=== PATIENT | female | born 1990 | race Caucasian/White ===

== ENCOUNTER 2016-12-25 09:30 | Emergency (ER) | payer MEDICAID ==
[~2016-12-25] VITALS: Ht 167.6 cm; Wt 68.5 kg
[2016-12-25 09:34] VITALS: BP 111/69; PULSE 92; RESP 16; TEMP 97.5; O2SAT 99
--- NOTE | 2016-12-25 09:46 | NUR ---
Patient to ER bed 4 to gown for evaluation. Side rails up. Report given to Abby RAMOS.
--- NOTE | 2016-12-25 09:47 | NUR ---
Stable condition. States has had cough for one week with occassional blood in sputum, believes is from coughing too hard. States received azithromycin last week and finished but symptoms persists. Also states that she has 1x bloody nose this AM that quickly stopped. Patient is 31 weeks . No other complaints/injuries per patient or noted.
--- NOTE | 2016-12-25 09:50 | NUR ---
Dr. Evans at bedside
--- NOTE | 2016-12-25 10:09 | NUR ---
Dr. Evans aware of heart rate
[2016-12-25 10:22] VITALS: BP 128/76; PULSE 88; RESP 20; TEMP 98.2; O2SAT 100
--- NOTE | 2016-12-25 10:22 | NUR ---
Patient given written and verbal discharge instructions and verbalizes understanding. ER MD discussed with patient the results and treatment provided. Patient in stable condition. ID arm band removed. Rx of Robitussin DM given. Patient educated on pain management and to follow up with PMD. Pain Scale 0/10. Opportunity for questions provided and answered.
== END 2016-12-25 10:22 | disposition home or self-care (01) ==
LOC: MERGE 09:30 → SED 09:30
DX: O99.513 Diseases of the respiratory system complicating pregnancy, third trimester (principal); J00 Acute nasopharyngitis [common cold]; R05 Cough; F41.9 Anxiety disorder, unspecified; Z3A.31 31 weeks gestation of pregnancy
CPT/HCPCS: 99282

== ENCOUNTER 2017-05-23 20:10 | Emergency (ER) | payer MEDICAID ==
[~2017-05-23] VITALS: Ht 167.6 cm; Wt 59.0 kg
[2017-05-23 20:25] VITALS: BP_SYST 133
[2017-05-23] MEDS ORDERED: NACL 0.9% 1,000 ML IV ONE (20:59)
[2017-05-23] MEDS ORDERED: ONDANSETRON HCL 4 MG/2 ML VIAL IVP ONE (21:00)
[2017-05-23] MEDS ORDERED: FAMOTIDINE PF 20 MG/2 ML VIAL IVP ONE (21:00)
[2017-05-23 21:29] LABS: BILIRUBIN,URINE NEGATIVE (NEGATIVE); BLOOD, URINE NEGATIVE (NEGATIVE); CLARITY/URINE CLEAR (CLEAR); COLOR,URINE YELLOW (YELLOW); GLUCOSE,URINE NEGATIVE (NEGATIVE); KETONES,URINE NEGATIVE (NEGATIVE); LEUKOCYTE ESTERASE ,URINE NEGATIVE (NEGATIVE); NITRITE, URINE NEGATIVE (NEGATIVE); PH,URINE 7.5 (5.0-8.0); PROTEIN URINE NEGATIVE (NEGATIVE); UROBILINOGEN,URINE 0.2 (0.2-1.0)
[2017-05-23 21:40] LABS: BASOPHILS % (AUTO) 0.4 % (0.0-2.0); EOSINOPHILS % (AUTO) 0.9 % (0.0-4.0); HEMATOCRIT 37.3 % (36-48); HEMOGLOBIN 12.4 g/dL (12.0-16.0); LYMPHOCYTES % (AUTO) 36.9 % (20.5-51.5); MEAN CORPUSCULAR HEMOGLOBIN 30 pg (27-31); MEAN CORPUSCULAR HGB CONC 33 % (32-36); MEAN CORPUSCULAR VOLUME 90 fL (79.0-98.0); MONOCYTES # (AUTO) 0.5 K/uL (0.0-1.0); MONOCYTES % (AUTO) 8.7 % (1.7-9.3); NEUTROPHILS # (AUTO) 2.8 K/uL (1.8-7.7); NEUTROPHILS % (AUTO) 53.1 % (40.0-70.0); PLATELET COUNT (AUTO) 219 K/uL (130-430); RED BLOOD CELL COUNT(AUTO) 4.16 MIL/uL (4.2-6.2); RED CELL DISTRIBUTION WIDTH 12.1 % (9.0-15.0); WHITE BLOOD COUNT (AUTO) 5.3 K/uL (4.8-10.8)
[2017-05-23 21:54] LABS: CALCIUM 8.3 mg/dL (8.4-11.0); CREATININE 0.74 mg/dL (0.55-1.30); POTASSIUM 4.1 mmol/L (3.5-5.1)
[2017-05-23 21:58] LABS: ALBUMIN 3.7 g/dL (3.4-4.8); TOTAL BILIRUBIN 0.3 mg/dL (0.0-1.0)
[2017-05-23 22:20] VITALS: BP_SYST 125
== END 2017-05-23 22:20 | disposition home or self-care (01) ==
LOC: SED 20:10
DX: K52.9 Noninfective gastroenteritis and colitis, unspecified (principal); F41.9 Anxiety disorder, unspecified
CPT/HCPCS: 36415; 80053; 81003; 81025; 82150; 83690; 85025; 96361; 96374; 96375; 99284; J2405; J3490; J7030

== ENCOUNTER 2017-09-23 22:48 | Emergency (ER) | payer MEDICAID ==
[~2017-09-23] VITALS: Ht 170.2 cm; Wt 63.5 kg
[2017-09-23 22:48] VITALS: BP_SYST 119
--- NOTE | 2017-09-23 23:03 | NUR ---
Placed in room 08 . Placed on correspondence transcriber, blood pressure machine and pulse oximeter. To gown for exam. Side rails up. Report given to RACHEL Banda.
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
--- NOTE | 2017-09-23 23:10 | NUR ---
ER at bedside examining patient.
[2017-09-23 23:32] LABS: CLARITY/URINE CLOUDY (CLEAR); COLOR,URINE RED (YELLOW)
[2017-09-23 23:34] LABS: BILIRUBIN,URINE NEGATIVE (NEGATIVE); BLOOD, URINE 3+ (NEGATIVE); GLUCOSE,URINE NEGATIVE (NEGATIVE); KETONES,URINE NEGATIVE (NEGATIVE); LEUKOCYTE ESTERASE ,URINE NEGATIVE (NEGATIVE); NITRITE, URINE NEGATIVE (NEGATIVE); PH,URINE 6.5 (5.0-8.0); PROTEIN URINE 2+ (NEGATIVE); UROBILINOGEN,URINE 0.2 (0.2-1.0)
[2017-09-23 23:36] LABS: BACTERIA,URINE FEW /HPF (None Seen); RBC,URINE >100 /HPF (0-3); WBC,URINE 0-3 /HPF (0-3)
--- NOTE | 2017-09-24 | NUR ---
Patient resting quietly. No acute distress noted. Vital signs within normal range.
--- NOTE | 2017-09-24 01:00 | NUR ---
Patient resting quietly. No acute distress noted. Vital signs within normal range.
[2017-09-24 01:06] LABS: BASOPHILS % (AUTO) 0.4 % (0.0-2.0); EOSINOPHILS # (AUTO) 0.1 K/uL (0.0-0.4); EOSINOPHILS % (AUTO) 1.2 % (0.0-4.0); HEMATOCRIT 35.8 % (36-48); HEMOGLOBIN 11.9 g/dL (12.0-16.0); LYMPHOCYTES # (AUTO) 2.3 K/uL (1.0-5.5); LYMPHOCYTES % (AUTO) 41.9 % (20.5-51.5); MEAN CORPUSCULAR HEMOGLOBIN 29 pg (27-31); MEAN CORPUSCULAR HGB CONC 33 % (32-36); MEAN CORPUSCULAR VOLUME 87 fL (79.0-98.0); MONOCYTES # (AUTO) 0.4 K/uL (0.0-1.0); MONOCYTES % (AUTO) 7.9 % (1.7-9.3); NEUTROPHILS # (AUTO) 2.7 K/uL (1.8-7.7); NEUTROPHILS % (AUTO) 48.6 % (40.0-70.0); PLATELET COUNT (AUTO) 231 K/uL (130-430); RED BLOOD CELL COUNT(AUTO) 4.09 MIL/uL (4.2-6.2); WHITE BLOOD COUNT (AUTO) 5.5 K/uL (4.8-10.8)
[2017-09-24 01:35] LABS: CALCIUM 9.4 mg/dL (8.4-11.0); CREATININE 0.65 mg/dL (0.55-1.30); POTASSIUM 3.7 mmol/L (3.5-5.1)
[2017-09-24 01:39] LABS: TOTAL BILIRUBIN 0.2 mg/dL (0.0-1.0)
[2017-09-24 02:09] VITALS: BP_SYST 118
--- NOTE | 2017-09-24 02:09 | NUR ---
Patient given written and verbal discharge instructions and verbalizes understanding. ER MD discussed with patient the results and treatment provided. Patient in stable condition. ID arm band removed. Rx of ibuprofen, pyridium, and norco given. Patient educated on pain management and to follow up with PMD. Pain Scale 0/10. Opportunity for questions provided and answered.
[2017-09-24 02:16] LABS: PROTHROMBIN TIME 10.5 SECS (9.5-12.5)
== END 2017-09-24 02:09 | disposition home or self-care (01) ==
LOC: SED 22:48
DX: N20.0 Calculus of kidney (principal); R31.9 Hematuria, unspecified; F41.9 Anxiety disorder, unspecified
CPT/HCPCS: 36415; 80053; 81000-TC; 81025; 85025; 85610-TC; 85730-TC; 87086; 99285

== ENCOUNTER 2018-08-23 10:09 | Emergency (ER) | payer MEDICAID ==
[~2018-08-23] VITALS: Ht 170.2 cm; Wt 58.1 kg
[2018-08-23 10:10] VITALS: BP_SYST 122
--- NOTE | 2018-08-23 10:18 | NUR ---
patient placed in bed 7.
--- NOTE | 2018-08-23 10:23 | NUR ---
MD Melendrez at bedside
[2018-08-23 12:33] VITALS: BP_SYST 122
--- NOTE | 2018-08-23 12:34 | NUR ---
Patient given written and verbal discharge instructions and verbalizes understanding. ER MD discussed with patient the results and treatment provided. Patient in stable condition. ID arm band removed. Rx of tessalon,cepacol given. Patient educated on pain management and to follow up with PMD. Pain Scale . Opportunity for questions provided and answered. Medication side effect fact sheet provided.
== END 2018-08-23 12:34 | disposition home or self-care (01) ==
LOC: SED 10:09
DX: J06.9 Acute upper respiratory infection, unspecified (principal); B97.89 Other viral agents as the cause of diseases classified elsewhere; F41.9 Anxiety disorder, unspecified; R03.0 Elevated blood-pressure reading, without diagnosis of hypertension
CPT/HCPCS: 71045; 99283

== ENCOUNTER 2018-11-01 10:55 | Emergency (ER) | payer MEDICAID ==
[~2018-11-01] VITALS: Ht 170.2 cm; Wt 56.7 kg
[2018-11-01 11:11] VITALS: BP_SYST 96
--- NOTE | 2018-11-01 11:50 | NUR ---
Called pt x 1 , no answer
--- NOTE | 2018-11-01 11:55 | NUR ---
Called pt x 2 , no answer
--- NOTE | 2018-11-01 12:00 | NUR ---
Called pt x 3 , no answer
--- NOTE | 2018-11-01 12:01 | NUR ---
Patient left without being seen.
== END 2018-11-01 12:01 | disposition left against medical advice (07) ==
LOC: SED 10:55
DX: M25.572 Pain in left ankle and joints of left foot (principal); M54.5 Low back pain; W01.0XXA Fall on same level from slipping, tripping and stumbling without subsequent striking against object, initial encounter; Y93.89 Activity, other specified; Y92.89 Other specified places as the place of occurrence of the external cause; Y99.8 Other external cause status

== ENCOUNTER 2018-12-27 21:08 | Emergency (ER) | payer MEDICAID ==
[~2018-12-27] VITALS: Ht 167.6 cm; Wt 56.7 kg
[2018-12-27 21:16] VITALS: BP_SYST 105
--- NOTE | 2018-12-27 21:20 | NUR ---
Patient triaged and placed in waiting room. VSS and patient appears in no acute distress at this time. Accompanied by SELF, awaiting available bed, and MD notified of need for MSE.
[2018-12-27 21:57] LABS: BASOPHILS % (AUTO) 0.7 % (0.0-2.0); EOSINOPHILS % (AUTO) 0.9 % (0.0-4.0); HEMATOCRIT 35.9 % (36-48); HEMOGLOBIN 11.9 g/dL (12.0-16.0); LYMPHOCYTES # (AUTO) 1.6 K/uL (1.0-5.5); LYMPHOCYTES % (AUTO) 37.7 % (20.5-51.5); MEAN CORPUSCULAR HEMOGLOBIN 30 pg (27-31); MEAN CORPUSCULAR HGB CONC 33 % (32-36); MEAN CORPUSCULAR VOLUME 91 fL (79.0-98.0); MONOCYTES # (AUTO) 0.4 K/uL (0.0-1.0); MONOCYTES % (AUTO) 10.2 % (1.7-9.3); NEUTROPHILS # (AUTO) 2.2 K/uL (1.8-7.7); NEUTROPHILS % (AUTO) 50.5 % (40.0-70.0); PLATELET COUNT (AUTO) 217 K/uL (130-430); RED BLOOD CELL COUNT(AUTO) 3.97 MIL/uL (4.2-6.2); RED CELL DISTRIBUTION WIDTH 13.6 % (9.0-15.0); WHITE BLOOD COUNT (AUTO) 4.3 K/uL (4.8-10.8)
[2018-12-27 21:57] LABS: BILIRUBIN,URINE NEGATIVE (NEGATIVE); BLOOD, URINE 2+ (NEGATIVE); CLARITY/URINE CLEAR (CLEAR); COLOR,URINE YELLOW (YELLOW); GLUCOSE,URINE NEGATIVE (NEGATIVE); KETONES,URINE NEGATIVE (NEGATIVE); LEUKOCYTE ESTERASE ,URINE NEGATIVE (NEGATIVE); NITRITE, URINE NEGATIVE (NEGATIVE); PROTEIN URINE NEGATIVE (NEGATIVE); UROBILINOGEN,URINE 0.2 (0.2-1.0)
--- NOTE | 2018-12-27 22:02 | NUR ---
Patient to ER bed 07 to gown for evaluation. Side rails up. Report given to Pilar RAMOS.
--- NOTE | 2018-12-27 22:10 | NUR ---
Pt came to the ED for ABD pain and mild dysuria. Reports she be some dark colored urine after holding in urine for 7 hours. States she went to an urgent care yesterday and had lab work done. Reports there was blood in her urine and was advised to come to ED. Denies n/v/d or fever. No other complaints/injuries noted. Will cont. to monitor.
--- NOTE | 2018-12-27 22:15 | NUR ---
ER at bedside examining patient.
[2018-12-27 22:22] LABS: CALCIUM 8.7 mg/dL (8.4-11.0); CREATININE 0.63 mg/dL (0.55-1.30); POTASSIUM 3.9 mmol/L (3.5-5.1)
[2018-12-27 22:28] LABS: ALBUMIN 3.7 g/dL (3.4-4.8); TOTAL BILIRUBIN 0.4 mg/dL (0.0-1.0)
[2018-12-27 22:32] LABS: BACTERIA,URINE FEW /HPF (None Seen); WBC,URINE 0-3 /HPF (0-3)
[2018-12-27 22:33] LABS: MUCUS,URINE None Seen /LPF (None Seen)
--- NOTE | 2018-12-27 23:04 | NUR ---
technical artist taking pt for ultrasound.
[2018-12-28 00:36] VITALS: BP_SYST 105
--- NOTE | 2018-12-28 00:36 | NUR ---
Patient given written and verbal discharge instructions and verbalizes understanding. ER MD Dr. Carter discussed with patient the results and treatment provided. Patient in stable condition. ID arm band removed. Rx of norco and keflex given. Patient educated on pain management and to follow up with PMD. Pain Scale 0/10. Opportunity for questions provided and answered. Medication side effect fact sheet provided.
--- NOTE | 2018-12-28 14:17 | NUR ---
received call from pharmacy. patient was attempting to fill NORCO Rx provided by MD Carter. Patient was also filling an order for percocet and Ativan from another providers. MD Ross cancelled Sloan order and ordered the following: Motrin 600mg three times daily with food. patient can have 30 pills.
== END 2018-12-28 00:36 | disposition home or self-care (01) ==
LOC: SED 21:08
DX: N30.00 Acute cystitis without hematuria (principal); Z87.42 Personal history of other diseases of the female genital tract; F41.9 Anxiety disorder, unspecified
CPT/HCPCS: 36415; 76830-TC; 76857; 80053; 81000-TC; 81025; 85025; 99284

== ENCOUNTER 2019-03-22 17:23 | Emergency (ER) | payer MEDICAID ==
[~2019-03-22] VITALS: Ht 167.6 cm; Wt 54.4 kg
[2019-03-22 17:34] VITALS: BP_SYST 112
[2019-03-22 18:14] LABS: BASOPHILS % (AUTO) 0.6 % (0.0-2.0); EOSINOPHILS % (AUTO) 0.6 % (0.0-4.0); HEMATOCRIT 35.8 % (36-48); HEMOGLOBIN 11.9 g/dL (12.0-16.0); LYMPHOCYTES # (AUTO) 1.8 K/uL (1.0-5.5); LYMPHOCYTES % (AUTO) 38.8 % (20.5-51.5); MEAN CORPUSCULAR HEMOGLOBIN 30 pg (27-31); MEAN CORPUSCULAR HGB CONC 33 % (32-36); MEAN CORPUSCULAR VOLUME 92 fL (79.0-98.0); MONOCYTES # (AUTO) 0.4 K/uL (0.0-1.0); MONOCYTES % (AUTO) 8.5 % (1.7-9.3); NEUTROPHILS # (AUTO) 2.3 K/uL (1.8-7.7); NEUTROPHILS % (AUTO) 51.5 % (40.0-70.0); PLATELET COUNT (AUTO) 243 K/uL (130-430); RED BLOOD CELL COUNT(AUTO) 3.91 MIL/uL (4.2-6.2); RED CELL DISTRIBUTION WIDTH 13.8 % (9.0-15.0); WHITE BLOOD COUNT (AUTO) 4.6 K/uL (4.8-10.8)
[2019-03-22 18:24] LABS: CALCIUM 8.4 mg/dL (8.4-11.0); CREATININE 0.73 mg/dL (0.55-1.30); POTASSIUM 3.9 mmol/L (3.5-5.1)
[2019-03-22 18:27] LABS: PROTHROMBIN TIME 10.4 SECS (9.5-12.5)
[2019-03-22 18:30] LABS: ALBUMIN 3.5 g/dL (3.4-4.8); TOTAL BILIRUBIN 0.3 mg/dL (0.0-1.0)
[2019-03-22 18:59] VITALS: BP_SYST 107
== END 2019-03-22 18:58 | disposition home or self-care (01) ==
LOC: SED 17:23
DX: R10.13 Epigastric pain (principal); R19.7 Diarrhea, unspecified; F41.9 Anxiety disorder, unspecified
CPT/HCPCS: 36415; 80053; 81002; 81025; 83690-TC; 85025; 85610-TC; 85730-TC; 99283

== ENCOUNTER 2019-03-28 09:12 | Emergency (ER) | payer MEDICAID ==
[~2019-03-28] VITALS: Ht 167.6 cm; Wt 54.4 kg
[2019-03-28 09:18] VITALS: BP_SYST 118
--- NOTE | 2019-03-28 09:25 | NUR ---
Patient to ER bed 5 to gown for evaluation. Side rails up. Report given to Gila RAMOS.
--- NOTE | 2019-03-28 09:40 | NUR ---
Patient presented to ER with C/O right flank pain, unable to void this morning. Patient A&Ox4, skin pink, afebrile, pain 8/10, nausea, emesis x1, denies diarrhea. Patient states pain started yesterday and last void was ths am 0300 03/28/19.
[2019-03-28] MEDS ORDERED: KETOROLAC TROMETHAMINE 60 MG/2 ML VIAL IM ONE (09:45)
[2019-03-28 10:01] LABS: BASOPHILS % (AUTO) 0.6 % (0.0-2.0); EOSINOPHILS # (AUTO) 0.1 K/uL (0.0-0.4); EOSINOPHILS % (AUTO) 1.3 % (0.0-4.0); HEMATOCRIT 37.1 % (36-48); HEMOGLOBIN 12.2 g/dL (12.0-16.0); LYMPHOCYTES # (AUTO) 1.7 K/uL (1.0-5.5); LYMPHOCYTES % (AUTO) 32.7 % (20.5-51.5); MEAN CORPUSCULAR HEMOGLOBIN 31 pg (27-31); MEAN CORPUSCULAR HGB CONC 33 % (32-36); MEAN CORPUSCULAR VOLUME 93 fL (79.0-98.0); MONOCYTES # (AUTO) 0.6 K/uL (0.0-1.0); MONOCYTES % (AUTO) 11.4 % (1.7-9.3); NEUTROPHILS # (AUTO) 2.8 K/uL (1.8-7.7); PLATELET COUNT (AUTO) 216 K/uL (130-430); RED CELL DISTRIBUTION WIDTH 13.6 % (9.0-15.0); WHITE BLOOD COUNT (AUTO) 5.1 K/uL (4.8-10.8)
[2019-03-28 10:13] LABS: CALCIUM 8.8 mg/dL (8.4-11.0); CREATININE 0.81 mg/dL (0.55-1.30); POTASSIUM 4.3 mmol/L (3.5-5.1)
--- NOTE | 2019-03-28 10:15 | NUR ---
Patient had emesis x1, emesisi basin given. patien states she is unable to provide urine sample.
[2019-03-28 10:16] LABS: PROTHROMBIN TIME 10.7 SECS (9.5-12.5)
[2019-03-28 10:17] LABS: ALBUMIN 3.6 g/dL (3.4-4.8); TOTAL BILIRUBIN 0.3 mg/dL (0.0-1.0)
[2019-03-28] MEDS ORDERED: ONDANSETRON 4 MG ODT TAB PO ONE ×2 (10:45→12:30)
--- NOTE | 2019-03-28 12:20 | NUR ---
Patient refused morphine 10 mg IM and PO zofran, patient states she wants to avoid nausea and drowsiness.
[2019-03-28] MEDS ORDERED: MORPHINE SULFATE 10 MG/ML VIAL IM ONE (12:30)
--- NOTE | 2019-03-28 12:30 | NUR ---
Per Dr. Henriquez with child allowed to visit patient in ER room 5 for a quick update.
[2019-03-28] MEDS ORDERED: ONDANSETRON HCL 4 MG/2 ML VIAL IVP ONE (12:45)
[2019-03-28] MEDS ORDERED: MORPHINE 2 MG/ML INJ. SYRINGE IVP ONE (12:45)
--- NOTE | 2019-03-28 13:00 | NUR ---
Patient to CT with Radiology staff via wheel chair
[2019-03-28] MEDS ORDERED: IOHEXOL 100 ML IV ONE (13:05)
--- NOTE | 2019-03-28 13:06 | NUR ---
Audie, radiology called from CT per patient requesting to take home meds, xanax prior to CT procedure. Dr. Henriquez made aware, verbal "Okay for patient to take personal xanax now in Radiology".
--- NOTE | 2019-03-28 13:56 | NUR ---
Pt declined 2mg morphine IVP and 4mg zofran IVP "for now." Pt reports she took her anxiety pill. Pt states "I will probably want the medication later."
[2019-03-28 14:35] VITALS: BP_SYST 118
--- NOTE | 2019-03-28 14:35 | NUR ---
Patient given written and verbal discharge instructions and verbalizes understanding. ER MD discussed with patient the results and treatment provided. Patient in stable condition. ID arm band removed. IV catheter removed intact and dressing applied, no active bleeding. Rx of [] given. Patient educated on pain management and to follow up with PMD. Pain Scale []. Opportunity for questions provided and answered. Medication side effect fact sheet provided.
== END 2019-03-28 14:35 | disposition home or self-care (01) ==
LOC: SED 09:12
DX: N23 Unspecified renal colic (principal); F41.9 Anxiety disorder, unspecified
CPT/HCPCS: 36415; 74176; 74177; 80053; 81002; 81025; 82150; 83690; 84703; 85025; 85610; 85730; 96372; 99284; J1885; J2270; J2405; Q0162; Q9967; 99283

== ENCOUNTER 2019-11-08 14:39 | Emergency (ER) | payer MEDICAID ==
[~2019-11-08] VITALS: Ht 170.2 cm; Wt 56.7 kg
--- NOTE | 2019-11-08 14:40 | NUR ---
Patient to ER bed 8 to gown for evaluation. Side rails up.
[2019-11-08 14:48] VITALS: BP_SYST 119
--- NOTE | 2019-11-08 14:58 | NUR ---
MEENAKSHI Diaz at bedside examining patient.
--- NOTE | 2019-11-08 15:00 | NUR ---
pt arrives from home w/ abd pain, liquid dark stools, and BLE swelling.
--- NOTE | 2019-11-08 15:25 | NUR ---
pt getting an x-ray at the bedside
[2019-11-08 15:26] LABS: BASOPHILS % (AUTO) 0.3 % (0.0-2.0); EOSINOPHILS % (AUTO) 0.7 % (0.0-4.0); HEMATOCRIT 37.9 % (36-48); HEMOGLOBIN 12.6 g/dL (12.0-16.0); LYMPHOCYTES # (AUTO) 1.5 K/uL (1.0-5.5); MEAN CORPUSCULAR HEMOGLOBIN 31 pg (27-31); MEAN CORPUSCULAR HGB CONC 33 % (32-36); MEAN CORPUSCULAR VOLUME 93 fL (79.0-98.0); MONOCYTES # (AUTO) 0.4 K/uL (0.0-1.0); MONOCYTES % (AUTO) 8.4 % (1.7-9.3); NEUTROPHILS # (AUTO) 2.8 K/uL (1.8-7.7); NEUTROPHILS % (AUTO) 58.6 % (40.0-70.0); PLATELET COUNT (AUTO) 210 K/uL (130-430); RED BLOOD CELL COUNT(AUTO) 4.09 MIL/uL (4.2-6.2); RED CELL DISTRIBUTION WIDTH 13.4 % (9.0-15.0); WHITE BLOOD COUNT (AUTO) 4.7 K/uL (4.8-10.8)
[2019-11-08 15:36] LABS: CALCIUM 8.2 mg/dL (8.4-11.0); CREATININE 0.64 mg/dL (0.55-1.30)
[2019-11-08 15:45] LABS: BILIRUBIN,URINE NEGATIVE (NEGATIVE); BLOOD, URINE 3+ (NEGATIVE); CLARITY/URINE CLEAR (CLEAR); COLOR,URINE YELLOW (YELLOW); GLUCOSE,URINE NEGATIVE (NEGATIVE); KETONES,URINE NEGATIVE (NEGATIVE); LEUKOCYTE ESTERASE ,URINE NEGATIVE (NEGATIVE); NITRITE, URINE NEGATIVE (NEGATIVE); PROTEIN URINE NEGATIVE (NEGATIVE); UROBILINOGEN,URINE 0.2 (0.2-1.0)
[2019-11-08 15:50] LABS: ALBUMIN 3.5 g/dL (3.4-4.8); THYROID STIMULATING HORMONE 1.97 uIu/mL (0.36-3.74); TOTAL BILIRUBIN 0.4 mg/dL (0.0-1.0)
[2019-11-08 15:58] LABS: BACTERIA,URINE MODERATE /HPF (None Seen); MUCUS,URINE None Seen /LPF (None Seen); RBC,URINE 0-3 /HPF (0-3); WBC,URINE 0-3 /HPF (0-3)
[2019-11-08 16:34] VITALS: BP_SYST 119
== END 2019-11-08 16:43 | disposition home or self-care (01) ==
LOC: SED 14:39
DX: K59.00 Constipation, unspecified (principal); N92.5 Other specified irregular menstruation; F41.9 Anxiety disorder, unspecified
CPT/HCPCS: 36415; 74018; 80053; 81000-TC; 84443-TC; 85025; 99284

== ENCOUNTER 2021-01-21 16:47 | Emergency (ER) | payer MEDICAID ==
[~2021-01-21] VITALS: Ht 167.6 cm; Wt 61.2 kg
[2021-01-21 18:42] LABS: BASOPHILS % (AUTO) 0.3 % (0.0-2.0); EOSINOPHILS % (AUTO) 0.9 % (0.0-4.0); HEMATOCRIT 39.2 % (36-48); HEMOGLOBIN 13.1 g/dL (12.0-16.0); LYMPHOCYTES # (AUTO) 1.6 K/uL (1.0-5.5); LYMPHOCYTES % (AUTO) 33.4 % (20.5-51.5); MEAN CORPUSCULAR HEMOGLOBIN 30 pg (27-31); MEAN CORPUSCULAR HGB CONC 33 % (32-36); MEAN CORPUSCULAR VOLUME 90 fL (79.0-98.0); MONOCYTES # (AUTO) 0.5 K/uL (0.0-1.0); MONOCYTES % (AUTO) 9.7 % (1.7-9.3); NEUTROPHILS # (AUTO) 2.7 K/uL (1.8-7.7); NEUTROPHILS % (AUTO) 55.7 % (40.0-70.0); PLATELET COUNT (AUTO) 212 K/uL (130-430); RED BLOOD CELL COUNT(AUTO) 4.34 MIL/uL (4.2-6.2); RED CELL DISTRIBUTION WIDTH 13.1 % (9.0-15.0); WHITE BLOOD COUNT (AUTO) 4.8 K/uL (4.8-10.8)
[2021-01-21 18:53] LABS: BILIRUBIN,URINE NEGATIVE (NEGATIVE); BLOOD, URINE NEGATIVE (NEGATIVE); CLARITY/URINE CLEAR (CLEAR); COLOR,URINE YELLOW (YELLOW); GLUCOSE,URINE NEGATIVE (NEGATIVE); KETONES,URINE NEGATIVE (NEGATIVE); LEUKOCYTE ESTERASE ,URINE NEGATIVE (NEGATIVE); NITRITE, URINE NEGATIVE (NEGATIVE); PH,URINE 7.5 (5.0-8.0); PROTEIN URINE NEGATIVE (NEGATIVE); UROBILINOGEN,URINE 0.2 (0.2-1.0)
[2021-01-21 19:02] LABS: CALCIUM 8.3 mg/dL (8.4-11.0); CREATININE 0.8 mg/dL (0.55-1.30)
[2021-01-21 19:07] LABS: ALBUMIN 3.6 g/dL (3.4-4.8); TOTAL BILIRUBIN 0.2 mg/dL (0.0-1.0)
[2021-01-21 22:11] VITALS: BP_SYST 128
== END 2021-01-21 20:21 | disposition home or self-care (01) ==
LOC: SED 16:47
DX: R60.0 Localized edema (principal); F41.9 Anxiety disorder, unspecified
CPT/HCPCS: 36415; 71045; 80053; 81003; 81025; 83880; 84484; 85025; 93005; 99285

== ENCOUNTER 2023-06-27 21:06 | Emergency (ER) | payer MEDICAID ==
[~2023-06-27] VITALS: Ht 170.2 cm; Wt 59.0 kg
[2023-06-27 21:12] VITALS: BP_SYST 112; PULSE 84; RESP 17; TEMP 97.4; O2SAT 98
[2023-06-27 21:49] LABS: BASOPHILS % (AUTO) 0.4 % (0.0-2.0); EOSINOPHILS % (AUTO) 0.4 % (0.0-4.0); HEMATOCRIT 43.1 % (36-48); HEMOGLOBIN 13.9 g/dL (12.0-16.0); LYMPHOCYTES # (AUTO) 1.4 K/uL (1.0-5.5); LYMPHOCYTES % (AUTO) 24.8 % (20.5-51.5); MEAN CORPUSCULAR HEMOGLOBIN 30 pg (27-31); MEAN CORPUSCULAR HGB CONC 32 % (32-36); MEAN CORPUSCULAR VOLUME 93 fL (79.0-98.0); MONOCYTES # (AUTO) 0.4 K/uL (0.0-1.0); MONOCYTES % (AUTO) 7.4 % (1.7-9.3); NEUTROPHILS # (AUTO) 3.9 K/uL (1.8-7.7); PLATELET COUNT (AUTO) 253 K/uL (130-430); RED BLOOD CELL COUNT(AUTO) 4.65 MIL/uL (4.2-6.2); RED CELL DISTRIBUTION WIDTH 13.4 % (9.0-15.0); WHITE BLOOD COUNT (AUTO) 5.8 K/uL (4.8-10.8)
[2023-06-27 22:12] LABS: CREATININE 0.71 mg/dL (0.55-1.30); POTASSIUM 3.9 mmol/L (3.5-5.1)
[2023-06-27 22:16] LABS: ALBUMIN 3.7 g/dL (3.4-4.8); TOTAL BILIRUBIN 0.3 mg/dL (0.0-1.0); TOTAL PROTEIN, SERUM 7.1 g/dL (6.4-8.3)
[2023-06-27 22:49] LABS: BILIRUBIN,URINE NEGATIVE (NEGATIVE); BLOOD, URINE NEGATIVE (NEGATIVE); COLOR,URINE YELLOW (YELLOW); GLUCOSE,URINE NEGATIVE (NEGATIVE); KETONES,URINE NEGATIVE (NEGATIVE); LEUKOCYTE ESTERASE ,URINE NEGATIVE (NEGATIVE); NITRITE, URINE NEGATIVE (NEGATIVE); PH,URINE 7.5 (5.0-8.0); PROTEIN URINE NEGATIVE (NEGATIVE); UROBILINOGEN,URINE 0.2 (0.2-1.0)
[2023-06-27 22:52] LABS: CLARITY/URINE CLEAR (CLEAR)
[2023-06-27 23:12] VITALS: BP_SYST 115; PULSE 80; RESP 16; TEMP 97.7; O2SAT 99
== END 2023-06-27 23:12 | disposition home or self-care (01) ==
LOC: SED 21:06
DX: K59.00 Constipation, unspecified (principal); R10.9 Unspecified abdominal pain; Z79.899 Other long term (current) drug therapy
CPT/HCPCS: 36415; 80053; 81001; 81003; 81025; 85025; 99283

== ENCOUNTER 2023-09-20 14:27 | Emergency (ER) | payer MEDICAID ==
[~2023-09-20] VITALS: Ht 170.2 cm; Wt 61.2 kg
[2023-09-20 14:35] VITALS: BP_SYST 131; PULSE 85; RESP 18; TEMP 97.4; O2SAT 100
== END 2023-09-20 17:08 | disposition left against medical advice (07) ==
LOC: SED 14:27
DX: R10.13 Epigastric pain (principal); M79.10 Myalgia, unspecified site; R11.10 Vomiting, unspecified; I10 Essential (primary) hypertension; Z79.899 Other long term (current) drug therapy
CPT/HCPCS: 99281

== ENCOUNTER 2024-05-30 18:58 | Emergency (ER) | payer MEDICAID ==
[~2024-05-30] VITALS: Ht 167.6 cm; Wt 56.7 kg
[2024-05-30 19:23] VITALS: BP_SYST 113; PULSE 70; RESP 18; TEMP 98.2; O2SAT 100
[2024-05-30 20:54] LABS: BILIRUBIN,URINE NEGATIVE (NEGATIVE); BLOOD, URINE NEGATIVE (NEGATIVE); CLARITY/URINE CLEAR (CLEAR); COLOR,URINE YELLOW (YELLOW); GLUCOSE,URINE NEGATIVE (NEGATIVE); KETONES,URINE NEGATIVE (NEGATIVE); LEUKOCYTE ESTERASE ,URINE NEGATIVE (NEGATIVE); NITRITE, URINE NEGATIVE (NEGATIVE); PROTEIN URINE NEGATIVE (NEGATIVE); UROBILINOGEN,URINE 0.2 (0.2-1.0)
[2024-05-30 21:40] VITALS: BP_SYST 122; PULSE 72; RESP 18; TEMP 97.5; O2SAT 98
== END 2024-05-30 21:40 | disposition home or self-care (01) ==
LOC: SED 18:58
DX: R10.2 Pelvic and perineal pain (principal); R10.9 Unspecified abdominal pain; F41.9 Anxiety disorder, unspecified
CPT/HCPCS: 76856; 81001; 81003; 87210; 93005; 99284